=== PATIENT | female | born 1960 | race Caucasian/White ===

== ENCOUNTER → 2016-11-08 | Outpatient (CLI) | payer OTHER ==
[~2016-11-08] MED LIST: AMBI10TA PO; DULO20 PO; GINK60TA10; LORA-474 PO; METO25TA3 PO; MULTTAB67 PO; NAPR500 PO; NEUR300C PO; ROBA500T PO; ROBA750T PO; TRAM50TA PO; VITA100064 PO
[2016-11-08 08:21] LABS: AUTOMATED NEUTROPHIL # 6.2 TH/MM3 (1.8-7.7); BASOPHIL # 0.1 TH/MM3 (0-0.2); BASOPHIL % 0.7 % (0.0-2.0); EOSINOPHIL # 0.2 TH/MM3 (0-0.4); EOSINOPHIL % 1.9 % (0.0-4.0); HEMATOCRIT 34.4 % (35.0-46.0); HEMO FLAGS DIFF FINAL; LYMPH % 19.2 % (9.0-44.0); LYMPHOCYTE # 1.7 TH/MM3 (1.0-4.8); MEAN CELL VOLUME 77.9 FL (80.0-100.0); MEAN CORPUSCULAR HEMOGLOBIN 25.4 PG (27.0-34.0); MEAN CORPUSCULAR HGB CONC 32.6 % (32.0-36.0); MONO % 6.4 % (0.0-8.0); NEUT % 71.8 % (16.0-70.0); PLATELET COUNT 181 TH/MM3 (150-450); RED BLOOD COUNT 4.41 MIL/MM3 (4.00-5.30); RED CELL DISTRIBUTION WIDTH 16.8 % (11.6-17.2); WHITE BLOOD COUNT 8.7 TH/MM3 (4.0-11.0)
[2016-11-08 09:09] LABS: ALKALINE PHOSPHATASE 89 U/L (45-117); ALT (GPT) 35 U/L (10-53); ANION GAP 7 MEQ/L (5-15); AST (GOT) 21 U/L (15-37); BICARBONATE 27.4 MEQ/L (21.0-32.0); BLOOD UREA NITROGEN 21 MG/DL (7-18); CHLORIDE 109 MEQ/L (98-107); FERRITIN 6 NG/ML (8-252); FREE T3 2.51 PG/ML (2.18-3.98); FREE T4 0.85 NG/DL (0.76-1.46); GLOMERULAR FILTRATION RATE 65 ML/MIN (>89); GLUCOSE,FASTING 93 MG/DL (74-99); HDL CHOLESTEROL 48.8 MG/DL (40.0-60.0); LDL CHOLESTEROL 126 MG/DL (0-99); SODIUM (NA) 143 MEQ/L (136-145); TOTAL BILIRUBIN ADULT 0.3 MG/DL (0.2-1.0); TRANSFERRIN IRON PROFILE 331 MG/DL (200-360)
== END ==
LOC: CLAB 07:40
PROVIDERS: ATTEND Internal Medicine
DX: E56.8 Deficiency of other vitamins (principal); I10 Essential (primary) hypertension
CPT/HCPCS: 36415; 80053; 80061; 82306; 82607; 82728; 83540; 83550; 84439; 84443; 84481; 85025

== ENCOUNTER → 2016-12-07 | Outpatient (CLI) | payer OTHER ==
[2016-12-07 07:38] LABS: AUTOMATED NEUTROPHIL # 3.6 TH/MM3 (1.8-7.7); BASOPHIL % 0.6 % (0.0-2.0); EOSINOPHIL # 0.2 TH/MM3 (0-0.4); EOSINOPHIL % 3.4 % (0.0-4.0); HEMATOCRIT 34.2 % (35.0-46.0); HEMO FLAGS DIFF FINAL; LYMPH % 28.3 % (9.0-44.0); LYMPHOCYTE # 1.7 TH/MM3 (1.0-4.8); MEAN CORPUSCULAR HEMOGLOBIN 25.3 PG (27.0-34.0); MEAN CORPUSCULAR HGB CONC 32.5 % (32.0-36.0); MONO % 7.3 % (0.0-8.0); NEUT % 60.4 % (16.0-70.0); PLATELET COUNT 193 TH/MM3 (150-450); RED BLOOD COUNT 4.38 MIL/MM3 (4.00-5.30); RED CELL DISTRIBUTION WIDTH 16.5 % (11.6-17.2)
[2016-12-07 08:14] LABS: FERRITIN 8 NG/ML (8-252); TRANSFERRIN IRON PROFILE 322 MG/DL (200-360)
== END ==
LOC: CLAB 07:16
PROVIDERS: ATTEND Internal Medicine
DX: D50.8 Other iron deficiency anemias (principal)
CPT/HCPCS: 36415; 82728; 83540; 83550; 85025

== ENCOUNTER 2017-03-08 16:18 | Emergency (ER) | payer OTHER ==
[~2017-03-08] VITALS: Ht 167.6 cm; Wt 125.0 kg
[~2017-03-08 16:18] MED LIST changes: -GINK60TA10; -NAPR500 PO; -NEUR300C PO; -ROBA500T PO; -TRAM50TA PO
[2017-03-08 16:20] VITALS: BP 148/92; PULSE 97; RESP 15; TEMP 98.1; O2SAT 98
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
[2017-03-08] MEDS ORDERED: GINK60TA10 (16:47)
[2017-03-08] MEDS ORDERED: NEUR300C PO (16:49)
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
[2017-03-08] MEDS ORDERED: CYCLOBENZAPRINE HCL 10 MG TAB PO ONE (17:30)
[2017-03-08] MEDS ORDERED: ACETAMINOPHEN/HYDROcodone 325 MG/5 MG TAB PO ONE (17:30)
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
[2017-03-08] MEDS ORDERED: ROBA500T PO (18:47)
[2017-03-08] MEDS ORDERED: NAPR500 PO (18:47)
[2017-03-08] MEDS ORDERED: TRAM50TA PO (19:32)
--- NOTE | 2017-03-09 09:19 | EKG ---
Date Performed: 03/08/2017 Time Performed: 19:14:31 PTAGE: 56 years EKG: Sinus rhythm WITH OCCASIONAL VENTRICULAR PREMATURE COMPLEXES BORDERLINE ECG PREVIOUS TRACING : 09/20/2016 09.50 DOCTOR: Ran Hoffmann Interpretating Date/Time 03/09/2017 09:16:50
== END 2017-03-08 19:42 | disposition home or self-care (01) ==
LOC: NEPE 16:18
DX: S39.012A Strain of muscle, fascia and tendon of lower back, initial encounter (principal); S16.1XXA Strain of muscle, fascia and tendon at neck level, initial encounter; S20.211A Contusion of right front wall of thorax, initial encounter; R94.31 Abnormal electrocardiogram [ECG] [EKG]; I10 Essential (primary) hypertension; Z86.59 Personal history of other mental and behavioral disorders; Z86.79 Personal history of other diseases of the circulatory system; Z87.19 Personal history of other diseases of the digestive system; Z87.39 Personal history of other diseases of the musculoskeletal system and connective tissue; V89.2XXA Person injured in unspecified motor-vehicle accident, traffic, initial encounter
CPT/HCPCS: 71010; 72050; 72100; 93005

== ENCOUNTER → 2017-10-27 | Day surgery (SDC) | payer OTHER ==
[~2017-10-27] MED LIST changes: +CYAN25005 SL; +CYCL10TA PO; +LIDOCAINE HCL 1% PF 30 ML VIAL INFIL ONE; +MEPERIDINE HCL 25 MG/ML VIAL IV ONE; +MIDAZOLAM HCL 2 MG/2 ML VIAL IV ONE; -MULTTAB67 PO; +PROPOFOL 200 MG/20 ML AMP IV ONE; -ROBA750T PO; +SODIUM CHLORIDE 0.9% 10 ML VIAL ONE; +TRAM50TA PO; +TRIAMCINOLONE ACETONIDE 40 MG/ML VIAL NERV BLOCK ONE; +TYLE325T PO; +VITAMIN B12 SL
--- NOTE | 2017-10-30 10:44 | M6 ---
cc: MILAN CARRILLO M.D. DATE: 10/27/2017. DATE OF : 1960 PROCEDURE PERFORMED: Fluoroscopically guided T1-T2 interlaminar epidural steroid injection. DESCRIPTION OF THE PROCEDURE IN DETAIL: History and physical was completed and signed. Consent was signed. Procedure site was marked. Medications were listed and reconciled. Pain score was recorded. Allergies were noted. Time out was taken. Fluoroscopy time was recorded where applicable. Sedation was administered or directed by Dr. Carrillo. The patient was given oxygen. The patient was monitored by a registered nurse. Total procedure time was greater than 15 minutes. IV was started, blood pressure cuff, pulse oximeter and EKG were applied. The patient was placed in the prone position on a Oren table and sedated with small amounts of propofol titrated to effect. Vital signs were monitored and remained stable throughout the procedure. The cervical area was prepped with alcohol and 10% Betadine solution and draped with sterile drapes. Fluoroscopy was used to visualize the T1-T2 interlaminar space. The skin was infiltrated with 1% Xylocaine using a 27-gauge needle. Then a 3-1/2-inch 18-gauge Coffman needle was advanced using fluoroscopic guidance and the [id number] technique into the epidural space at T1-T2 slightly to the left of the midline. There was negative aspiration for blood or any other type of fluid. The patient was given 6 mL of normal saline and 60 mg of Kenalog. Following the procedure, the patient was taken to the recovery room with stable vital signs neurologically intact. W. MD EVA Brown/MELISSA /8:50 AM /10:39 AM
== END | disposition home or self-care (01) ==
LOC: PHSDC 07:12
PROVIDERS: ATTEND Pain Medicine Interventional Pain Medicine
DX: M54.12 Radiculopathy, cervical region (principal); M54.2 Cervicalgia; M79.602 Pain in left arm; M79.601 Pain in right arm
CPT/HCPCS: 62321; 99152; J2175; J2250; J3301

== ENCOUNTER → 2017-11-14 | Day surgery (SDC) | payer OTHER ==
[~2017-11-14] MED LIST changes: -AMBI10TA PO; +LIDOCAINE HCL 1% 30 ML VIAL INFIL ONE; -LIDOCAINE HCL 1% PF 30 ML VIAL INFIL ONE; -VITA100064 PO; -VITAMIN B12 SL
--- NOTE | 2017-11-14 10:01 | M6 ---
cc: MILAN CARRILLO M.D. DATE 11/14/2017 DATE OF 1960 PROCEDURE Fluoroscopically guided T1-T2 interlaminar epidural steroid injection. History and physical was completed and signed. Consent was signed. Procedure site was marked. Medications were listed and reconciled. Pain score was recorded. Allergies were noted. Time out was taken. Fluoroscopy time was recorded where applicable. Sedation was administered or directed by Dr. Carrillo. The patient was given oxygen. The patient was monitored by a registered nurse. Total procedure time was greater than 15 minutes. PROCEDURE NOTE IV was started. Blood pressure cuff, pulse oximeter and EKG were applied. The patient was placed in the prone position on a Oren table, sedated with small amounts of propofol titrated to effect. Vital signs were monitored and remained stable throughout the procedure. The cervical area was prepped with alcohol and 10% Betadine solution and draped with sterile drapes. Fluoroscopy was used to visualize the T1-T2 interlaminar space. The skin was infiltrated with 1% Xylocaine using a 27-gauge needle. Then a 3-1/2-inch, 18-gauge Coffman needle was advanced using fluoroscopic guidance and the [id number]-aj-[id number] technique into the epidural space at T1-T2 slightly to the left of the midline. There was negative aspiration for blood or any other type of fluid and at that location the patient was given 5 mL of normal saline, 40 mg of Kenalog. Following this the patient was taken to the recovery room with stable vital signs, neurologically intact. W. MD EVA Brown/JOHANN /9:48 AM /9:54 AM
== END | disposition home or self-care (01) ==
LOC: PHSDC 08:00
PROVIDERS: ATTEND Pain Medicine Interventional Pain Medicine
DX: M54.6 Pain in thoracic spine (principal)
CPT/HCPCS: 62321; 99152; J2175; J2250; J3301

== ENCOUNTER → 2017-12-22 | Day surgery (SDC) | payer OTHER ==
[~2017-12-22] MED LIST changes: +DIPH25CA PO
--- NOTE | 2017-12-22 10:25 | M6 ---
cc: Vanessa Carrillo MD 12/22/2017 PROCEDURE: Fluoroscopically guided T1, T2 interlaminar epidural steroid injection. History and physical was completed and signed. Consent was signed. Procedure site was marked. Medications were listed and reconciled. Pain score was recorded. Allergies were noted. Time out was taken. Fluoroscopy time was recorded where applicable. Sedation was administered or directed by Dr. Carrillo. The patient was given oxygen. The patient was monitored by a registered nurse. Total procedure time was greater than 15 minutes. IV was started, blood pressure cuff, pulse oximeter and EKG were applied. The patient was placed in the prone position on a Oren table sedated with small amounts of propofol titrated to effect. Vital signs were monitored and remained stable throughout the procedure. The cervical area was prepped with alcohol and 10% Betadine solution, draped with sterile drapes. Fluoroscopy was used to visualize the T1, T2 interlaminar space. The skin was infiltrated with 1% Xylocaine using a 27 gauge needle. Then a 3-1/2 inch, 18 gauge Coffman needle was advanced using fluoroscopic guidance and the loss of resistance technique into the epidural space at T1-T2 slightly to the left of the midline. There was negative aspiration for blood or any other type of fluid and at that location, the patient was given 6 mL of normal saline and 60 mg of Kenalog. Following the procedure, the patient was taken to the recovery room with stable vital signs neurologically intact. She will be evaluated immediately and with followup to determine if she has a subjective decrease in her usual pain and a corresponding objective increase in her functional capabilities. MD EVA Greene/MEGHNA , 10:07 AM , 10:25 AM
== END | disposition home or self-care (01) ==
LOC: PHSDC 09:09
PROVIDERS: ATTEND Pain Medicine Interventional Pain Medicine
DX: M54.6 Pain in thoracic spine (principal)
CPT/HCPCS: 62321; 99152; J2175; J2250; J3301

== ENCOUNTER 2018-05-03 06:11 | Observation (INO) ==
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
[2018-05-03] MEDS ORDERED: Gelatin Size 100 Topical Foam ONE ×2 (06:49→11:00)
[2018-05-03] MEDS ORDERED: Bupivacaine/Epinephrine 0.5% Inj 50 ML Vial ONE (06:49)
[2018-05-03] MEDS ORDERED: Thrombin Topical Soln 5,000 UNIT Vial TOPICAL ONE ×2 (06:49→10:59)
[2018-05-03] MEDS ORDERED: Metoprolol Tartrate 25 MG Tablet PO SCH (07:00)
[2018-05-03] MEDS ORDERED: Sodium Chlor 0.9% Inj 500 ML IV.SIG SCH (07:00)
[2018-05-03] MEDS ORDERED: Sod Chloride 0.9% Inj 1,000 ML IV.SIG SCH (07:00)
[2018-05-03] MEDS ORDERED: Vancomycin Inj 1 GM/200 ML PIGGYBACK IV.SIG SCH (07:00)
[2018-05-03] MEDS ORDERED: Chlorhexidine Gluconate 2% 1 Pack (2 Cloths) TOPICAL SCH (07:00)
[2018-05-03] MEDS ORDERED: Propofol Inj 500 MG/50 ML Vial ONE (07:21)
[2018-05-03] MEDS ORDERED: Ketamine Inj 500 MG/10 ML Vial ONE (07:48)
[2018-05-03] MEDS ORDERED: Acetaminophen 325 MG Tablet PO PRN (12:20)
[2018-05-03] MEDS ORDERED: Zolpidem Tartrate 5 MG Tablet PO PRN (12:20)
[2018-05-03] MEDS ORDERED: Menthol 5.8 MG Lozenge BUCCAL PRN (12:20)
[2018-05-03] MEDS ORDERED: Bisacodyl 10 MG Supp RECTAL PRN (12:20)
[2018-05-03] MEDS ORDERED: Aluminum/Magnesium/Simethacone Susp 30 ML UDC PO PRN (12:20)
--- NOTE | 2018-05-03 12:30 | P.OP ---
- Postoperative Diagnosis (1) Cervical radiculopathy due to degenerative joint disease of spine (2) Cervical stenosis of spinal canal Date of procedure: 05/03/18 Procedure: Anterior cervical C5-6 and C6-7 microdiscectomy with interbody autograft fusion ; anterior C5-7 cervical plate placement; C5-6 and C6-7 interbody cage placement ; microsurgical technique Anesthesia: ERIC Surgeon: Serjio Oliva MD Development Vice President: Maryann Groves Estimated blood loss (mL): 100 Operation and Findings: Following administration of general endotracheal anesthesia with the neck maintained in neutral position in a Hall collar, the patient received a gram of vancomycin and Decadron 10 mg intravenously. Sequential compression devices were placed in supine position on a Oren table and all pressure points adequately padded. The head secured in a donut and anterior cervical region then shaved and prepped with Chloraprep and sterilely draped with Ioban along with the usual sterile draping. A transverse skin incision on the left side of the neck was then made after infiltrating the skin with 0.5% Marcaine with epinephrine solution extending down through the platysma. At the anterior border of the sternocleidomastoid further dissection was undertaken developing a plane between the carotid sheath laterally and the trachea esophagus medially. The prevertebral fascia was exposed and dissected out. The medial attachments of the longus colli muscles were detached and a self-retaining retractor used for exposure. The C5-6 disc space was localized with a marking the disc space and using lateral fluoroscopy. [place] distraction screws 14 mm length were placed one in the C5 and one in the C7 body interbody distraction and exposure. There was significant disc degeneration with disc height collapse and anterior osteophytes noted at the C5-6 and C6-7 levels and the osteophytes were resected with a Leksell and annulus incised with a 15 blade and further dissection undertaken using microtechnique with microscope magnification. Diskectomy was undertaken with pituitaries and the endplates were also decorticated with curettes and drill bit. And more posteriorly there was disk osteophyte complex compressing the thecal sac along with a significant uncovertebral joint hypertrophy with foraminal stenosis which was decompressed along with removal of the posterior longitudinal ligaments at both levels. The foramen was decompressed bilaterally using a Kerrison's and palpation with a nerve hook, the exiting nerve roots were felt to be free. The area was then copiously irrigated. I then placed a Peek cage packed with local autograft bone at the C5-6 and C6-7 interspaces under fluoroscopy guidance. [place] distraction pins were removed and the holes plugged with Gelfoam for hemostasis. In order to facilitate the fusion and provide stabilization, a Precision spine cervical plate was then placed with two 14 mm variable angle screws in the C5 body, one in the C6 body and two 14 mm fixed angle screws in the C7 body. The plate screw locking mechanism was then engaged. AP and lateral fluoroscopy confirmed good placement of the construct and the retractor was then removed. Muscular bleeding points were cauterized with bipolar cautery and Gelfoam was then also used for hemostasis which was removed. The platysma was then approximated using 3-0 Vicryl interrupted stitches and 3-0 Vicryl subcuticular stitch also placed in an interrupted fashion, and final skin closure was with Mastisol and Steri-Strips. Sterile dressing was then applied. Patient's neck immobilized in a Hall collar and the patient was then extubated and taken to the recovery room. There are no intraoperative complications and all sponge and needle counts were correct at the end of procedure. Estimated blood loss was about 100 cc. The patient did undergo intraoperative neurologic monitoring which remained stable throughout the surgery.
--- NOTE | 2018-05-03 12:35 | XR ---
EXAM DATE: 05/03/2018 12:30 PM EDT AGE/SEX: 57 years / Female INDICATIONS: Neck pain. CLINICAL DATA: This is the patient's initial encounter. Patient reports that signs and symptoms have been present for 1 day and indicates a pain score of Nonresponsive. MEDICAL/SURGICAL HISTORY: None. None. COMPARISON: No prior exams available for comparison. FINDINGS: AP and lateral views of the cervical spine were obtained and demonstrate the patient status post ante rior cervical fusion at the C5-C7 level with intact anterior screw-plate fixation device. Bone grafti ng material and markers are noted in the interspaces. The alignment is anatomic. The C6 and C7 verteb ral bodies are not well-visualized on the lateral view due to overlapping soft tissues. An endotrache al tube and temperature probe are noted in place. There are cerclage wires surrounding the posterior spinous processes at C1 and C2 levels. CONCLUSION: 1. Status post anterior cervical fusion at the C5-C7 level. 2. Status post apparent remote fusion of the posterior elements of the C1-2 level. Electronically signed by: Oliver Rosa MD 05/03/2018 12:33 PM EDT
[2018-05-03] MEDS ORDERED: fentaNYL Citrate Inj 100 MCG/2 ML Ampul ONE ×2 (12:52→12:53)
[2018-05-03] MEDS ORDERED: Lidocaine PF 1% Inj 5 ML Syringe INFILTRATN ONE (15:53)
[2018-05-03] MEDS ORDERED: Phenylephrine/NS 1000 MCG/10ML Syringe IV.PUSH ONE (15:53)
[2018-05-03] MEDS ORDERED: Neostigmine Inj 5 MG/5 ML Syringe IV.PUSH ONE (15:53)
[2018-05-03] MEDS ORDERED: Glycopyrrolate Inj 1 MG/5 ML Syringe IV.PUSH ONE (15:53)
[2018-05-03] MEDS ORDERED: Normosol-R pH 7.4 Inj 1,000 ML IV.CONT ONE (15:53)
[2018-05-03] MEDS: Morphine Inj 4 MG/ML Vial IV.PUSH PRN (19:49)
[2018-05-03] MEDS: Senna/Docusate Sodium 8.6/50 MG Tablet PO SCH (20:01)
[2018-05-03] MEDS: Vancomycin Inj 1,000 MG in Sodium Chlor 0.9% Inj 250 ML IV.SIG SCH (20:01)
[2018-05-04] MEDS: Morphine Inj 4 MG/ML Vial IV.PUSH PRN ×3 (00:02→10:20)
--- NOTE | 2018-05-04 10:18 | P.PNNS ---
Subjective Interval history: Pt awake and alert. Complains of incisional discomfort. No radiculopathy or paresthesias in UEs. Pt ambulates short distance to bathroom. Physical Exam Vital signs: Vital Signs 05/03/18 12:44 05/03/18 13:00 05/03/18 13:15 Temperature 97.5 F L Pulse Rate 88 87 90 Respiratory Rate 16 16 16 Blood Pressure 110/62 124/69 114/71 Pulse Oximetry 96 97 95 05/03/18 13:30 05/03/18 16:21 05/03/18 17:00 Temperature 98.4 F Pulse Rate 90 86 88 Respiratory Rate 16 16 18 Blood Pressure 115/71 113/55 L 102/57 L Pulse Oximetry 93 L 96 95 05/03/18 20:00 05/04/18 00:00 05/04/18 04:00 Temperature 98.5 F 98.7 F 98.2 F Pulse Rate 99 H 83 80 Respiratory Rate 20 18 19 Blood Pressure 106/59 L 106/60 108/62 Pulse Oximetry 95 94 L 94 L 05/04/18 08:00 Temperature 97.2 F L Pulse Rate 83 Respiratory Rate 17 Blood Pressure 99/56 L Pulse Oximetry 93 L Intake & Output 05/03/18 05/04/18 05/04/18 18:59 06:59 18:59 Intake Total 2690 / 2690 1600 / 1600 Output Total 2350 / 2350 1500 / 1500 Balance 340 / 340 100 / 100 Weight 136.1 kg 136.8 kg Intake: IV 1000 / 1000 NS + KCl 20 mEq Inj 1,000 ML @ 1000 / 1000 100 mls/hr IV.CONT .Q10H [facility] Rx #:[id number] Oral 240 / 240 600 / 600 Anesthesia Amount 2100 / 2100 Other 350 / 350 Output: Estimated Blood Loss 1000 / 1000 Urine Amount (Catheter) 1350 / 1350 1500 / 1620 754 8121 / 1350 1500 / 1500 Other: Date of Last Bowel Movement 05/02/18 Weight On Admission 136.1 kg - Constitutional no acute distress, obese, cooperative - Routine HEENT Exam Head: Present: normocephalic, atraumatic Eye: Present: PERRL. Absent: conjunctival icterus - Routine Respiratory Exam Present: CTA bilaterally. Absent: respiratory distress, rhonchi, wheezes - Routine Cardiovascular Exam Present: RRR, S1, S2. Absent: murmur - Routine Abdominal Exam Present: soft, normoactive bowel sounds. Absent: tenderness, distended - Routine Extremities Exam Absent: cyanosis, edema - Routine Skin Exam Present: intact (Incisionl clean and dry. No signs of infection. New bandage placed.). Absent: cyanosis, erythema - Routine Neurological Exam Present: alert, oriented X3, moving all extremities, normal speech. Absent: sensory deficit, motor deficit, altered mental status - Routine Psychiatric Exam Present: normal affect, normal thought process, cooperative, good insight, good judgment. Absent: anxious, agitated - Urinary Catheter Management 400 Cath placed during this visit: yes, but has since been removed by the nurse Reason for continuing: Hourly intake/output Insertion date: 05/03/18 Removal date: 05/04/18 Removal time: 05:30 Assessment and Plan - Assessment (1) Cervical stenosis of spinal canal Code(s): M48.02 - Spinal stenosis, cervical region Status: Acute (2) Cervical radiculopathy due to degenerative joint disease of spine Code(s): M47.22 - Other spondylosis with radiculopathy, cervical region Status : Acute - Plan Discharge pt home. Discussed restrictions. Discussed incisional care
[2018-05-04] MEDS: Vancomycin Inj 1,000 MG in Sodium Chlor 0.9% Inj 250 ML IV.SIG SCH (10:21)
[2018-05-04] MEDS: Senna/Docusate Sodium 8.6/50 MG Tablet PO SCH (10:23)
== END 2018-05-04 15:54 | disposition home or self-care (01) ==
LOC: HSDI 06:11 → N06 06:11 → HSDC 06:11 → N06 16:47
PROVIDERS: ADMIT Neurological Surgery; ATTEND Neurological Surgery